=== PATIENT | female | born 1960 | race Caucasian/White ===

== ENCOUNTER 2016-09-22 15:43 | Emergency (ER) | payer OTHER ==
[2016-09-22 15:51] VITALS: PULSE 62; TEMP 98.1
[2016-09-22] MEDS ORDERED: TDAP ADULT 0.5 ML INJ (BOOSTRIX) IM ONE (16:44)
--- NOTE | 2016-09-22 17:38 | EDPHY ---
H & P Stated Complaint: LAC TO L MIDDLE FINGER HPI/ROS: CHIEF COMPLAINT: Finger laceration HISTORY OF PRESENT ILLNESS: Patient complains of laceration to the left middle finger. She was trimming her head is with electric hedge clippers when she accidentally cut her finger. Moderate bleeding. Minimally painful unless she moves it or touches it. No numbness or tingling. No injury to the nail. No difficulty flexing or extending the finger. No injury to the palmar surface. Tetanus is in question. No other associated complaints or modifying factors. TIME OF INJURY: Less than 2 hours ago TETANUS STATUS: Uncertain REVIEW OF SYSTEMS: Ten systems reviewed and are negative unless otherwise noted in the HPI EXAMINATION General Appearance: Alert, no distress Head: normocephalic, atraumatic Cardiovascular: Pulses normal throughout. Symmetric radial pulses 2+ Brisk cap refill Neurological: A&O, sensory symmetric, strength symmetric. Good strength of the interossei. Skin: Warm and dry, no rash. Laceration to the left middle finger distal phalanx, volar. 1.25 cm, curvilinear. No involvement of the nail. No foreign body identified. Extremities: Tender over the area of laceration. There is full flexion- extension of the affected fingers without deficit. Two-point sensation intact. DIFFERENTIAL DIAGNOSES: Including but not limited to laceration, complex laceration, laceration with flexor injury, laceration foreign body MDM: 5:00 p.m. Laceration to the left middle finger over the distal phalanx. There is no involvement of the nail. Neurovascular intact. Digital block is been applied. Proceed with irrigation x-ray and closure 6:10 p.m. Laceration of the left middle finger over the distal phalanx, volar. No involvement of the nail. She is neurovascular intact. Procedure was well tolerated without complication. Excellent wound border approximation. We discussed wound care in detail. She is leaving town on Friday but returns on Friday. She will return here for suture removal in 7-10 days. PROCEDURE: Digital Block Indication: Finger laceration Consent: Verbal Location: Left middle finger Anesthesia: Lidocaine 1% plain, 0.25% Marcaine plain, 5mL Description: Base of the left middle finger was prepped with chlorhexidine. The above solution was infused without complication. Tolerated well. Good anesthesia. Neurovascular intact post procedure Complications: None PROCEDURE: Laceration repair Consent: Verbal Location: Left middle finger, volar, distal phalanx Length of repair: 1.25 cm Complexity: Simple Layer involvement: Single Anesthesia: Digital block as above Irrigation: Extensive Debridement: None Procedure description: Following good anesthesia, the wound was copiously irrigated. Wound bed was explored and there is no foreign body noted. Wound borders were approximated well with good hemostasis. Tolerated well without complication. Suture/Staple material: 5-0 Prolene, of isopropyl sutures Wound care: Routine as discussed Suture/Staple removal: 7-10 Days SUTURE STAPLE REMOVAL: 7-10 days ED Precautions: Worsening pain. Erythema, edema, cyanosis, pallor, paresthesia or anesthesia. SUPERVISION: This patient was independently evaluated without direct examination by the attending physician. Case was discussed with attending physician. Source: Patient Exam Limitations: No limitations - Personal History Current Tetanus Diphtheria and Acellular Pertussis (TDAP): Unsure - Medical/Surgical History Other PMH: SPLEENECTOMY-MONO - Social History Smoking Status: Never smoked Constitutional: Initial Vital Signs Temperature (C) 98.1 F 09/22/16 15:49 Heart Rate 62 09/22/16 15:49 Respiratory Rate 18 09/22/16 15:49 Blood Pressure 137/73 H 09/22/16 15:49 O2 Sat (%) 95 09/22/16 15:49 O2 Delivery Mode Room Air Allergies/Adverse Reactions: No Known Allergies Allergy (Unverified 09/22/16 15:49) Home Medications: Medication Instructions Recorded Hydrocodone/APAP 5/325 [[place] 1 - 2 tab PO Q4H PRN #10 tab 09/22/16 5/325 (*)] Medical Decision Making - Data Points Medications Given: Discontinued Medications Diphtheria/Tetanus/Acell Pertussis (Boostrix) 0.5 ml IM .ONCE ONE Stop: 09/22/16 16:45 Last Admin: 09/22/16 17:10 Dose: 0.5 ml Departure - Departure Disposition: Home, Routine, Self-Care Clinical Impression: Finger laceration Qualifiers: Encounter type: initial encounter Finger: middle finger Damage to nail status: without damage Foreign body presence: without foreign body Laterality: left Qualified Code(s): S61.213A - Laceration without foreign body of left middle finger without damage to nail, initial encounter Condition: Good Instructions: Care For Your Stitches (ED), Laceration (ED), Tuttle Neuroma (ED) , Hydrocodone/Acetaminophen (By mouth) Additional Instructions: 1. Wound care as discussed 2. Follow up here in 7-10 days for suture removal 3. Return for signs of infection as discussed Referrals: NONE *PRIMARY CARE P,. [Primary Care Provider] - As per Instructions Jose R Shen MD [Medical Doctor] - As per Instructions Prescriptions: Hydrocodone/APAP 5/325 [[place] 5/325 (*)] 1 - 2 tab PO Q4H PRN #10 tab PRN Reason: Pain, Moderate
[2016-09-22] MEDS ORDERED: HYDROCOD/APAP 5/325 PREPACK#6 BTL TAKEHOME ONE (18:15)
[2016-09-22 18:59] VITALS: BP 120/68; RESP 14; O2SAT 96
== END 2016-09-22 18:59 | disposition home or self-care (01) ==
PROC: 0HQGXZZ Repair Left Hand Skin, External Approach (ICD-10-PCS; principal; 2016-09-22)
DX: S61.213A Laceration without foreign body of left middle finger without damage to nail, initial encounter (principal); Z23 Encounter for immunization; W29.3XXA Contact with powered garden and outdoor hand tools and machinery, initial encounter